=== PATIENT | male | born 1975 | race Caucasian/White ===

== ENCOUNTER 2023-12-12 10:54 | Emergency (ER) | payer SELFPAY ==
[2023-12-12 10:54] VITALS: BP 162/107; BP 190/130; PULSE 77; PULSE 91; RESP 16; RESP 20; TEMP 37.2; O2SAT 97; O2SAT 98; BMI 24.4
--- NOTE | 2023-12-12 11:10 | EX.ED.DYSGE1 ---
HPI History of Present Illness Chief Complaint: Flank Pain Informant: patient Onset/Context/Timing Onset: Hours (1) Context: Sudden Onset Timing: Continuous Quality: pain Location: R flank Current Severity: Severe Maximum Severity: Severe Worsened by: n/a Relieved by: n/a Associated Symptoms Associated Symptoms: nausea Narrative Narrative: 48-year-old male with history of kidney stones feels like he has another 1 started suddenly an hour ago. No injury. No fevers or chills. No vomiting but feels nauseated. No urinary problems or hematuria this morning. States he sees Dr. Baxter in [place] for [facility], he has had multiple stones removed surgically in the past. [facility] Medical History (Updated 12/12/23 @ 13:[address] Manav Teresa MD) Kidney stones Allergy/AdvReac Type Severity Reaction Status Date / Time sulfamethoxazole (From AdvReac Nausea Verified 12/12/23 10:54 Bactrim) trimethoprim (From Bactrim) AdvReac Nausea Verified 12/12/23 10:54 Social History Smoking Status: Never smoker ROS ROS ED Constitutional Constitutional ED: Denies chills or fever(s) Eyes Eyes: Denies change in vision or diplopia ENT ENT ED: Denies rhinorrhea or sore throat Cardiovascular Cardiovascular: Denies chest pain or palpitations Respiratory/Chest Respiratory/Chest: Denies cough or dyspnea Gastrointestinal Gastrointestinal: Reports abdominal pain and nausea; Denies diarrhea or vomiting Genitourinary Genitourinary ED: Reports as per HPI and flank pain; Denies dysuria or hematuria Musculoskeletal Musculoskeletal: Reports back pain; Denies neck pain Integumentary Denies abscess or rash Neurologic Neurologic: Denies headache(s), paresthesias or weakness Psychiatric Psychiatric: Denies anxiety or suicidal thoughts EXAM Physical Exam Const Vital Signs: 12/12/23 10:54 12/12/23 10:54 Temperature 99 F Temperature Source Temporal Pulse Rate 91 77 Respiratory Rate 20 H 16 Blood Pressure 190/130 H 162/107 H Blood Pressure Mean 150 125 Pulse Ox 97 98 Oxygen Delivery Method Room Air Room Air Positive well nourished and well developed Constitutional Narrative: Mild painful distress moaning in pain. Cooperative. General Appearance ED: well developed HEENT Reports moist mucous membranes normocephalic and atraumatic Eyes PERRL and EOMs intact bilaterally Neck full ROM and supple Resp normal respiratory effort and clear to auscultation bilaterally Cardio regular rate, regular rhythm and no murmurs GI non-tender and non-distended GI Narrative: Points to mid right lateral abdomen as point of major pain, nontender there. Auscultation: normoactive bowel sounds Palpation: soft Back/Spine General Back: CVA tenderness right and other FROM Extremity normal to inspection General Extremety ED: Negative for edema, pulses abnormal or tenderness General Extremity: Negative for edema or pulses abnormal Neuro oriented x3, CN's II-XII intact bilaterally and no sensory deficits noted Sensorium / Orientation: awake and alert Motor Exam: strength 5/5 throughout Psych mental status grossly normal Skin no rashes or lesions noted and no wounds MDM MDM MDM Narrative Medical decision making narrative: Patient treated with morphine, Toradol, Zofran and on reevaluation he is asymptomatic and doing much better. I reviewed the CT images as well as the report, it shows what appears to be a recently passed stone at the base of the bladder it is measuring about 4.3 mm on my measurement. I agree with the radiology report. There is no sign of an obstructive uropathy at this time. He does have some asymptomatic nonobstructing renal stones bilaterally that are relatively small. Patient states that when he first arrived he urinated in the trash can because he was in a lot of pain and did not know what else to do. Therefore he does not need to urinate right now, states he was not having any problems, and is asymptomatic and does not want to stay for urinalysis and wants to leave I am okay with this and given him urine strainers to go home with advised to follow-up with his urologist or return if worse. He is comfortable with that plan. Radiography Diagnostic Testing: Clinical Impression(s) from Imaging Studies Abdomen/Pelvis CT 12/12/23 11:50 IMPRESSION: Nonobstructive bilateral intrarenal calculi. Findings suggestive of a recently passed calculus in the right ureteral system. The calculus is at the base of the bladder on the right side. Electronically Signed: Leif Arshad MD at 12:05 EDT , Discharge Plan Triage Chief Complaint: Flank Pain ED Provider: Manav Teresa Dx/Rx/DC Orders Clinical Impression: Urolithiasis, Renal colic on right side Instructions: ED Kidney Stone, Passed Primary Care Provider: KOURTNEY HERNANDEZ MD Referrals: KOURTNEY HERNANDEZ MD [Other] - 3-5 Days if not improving (Or Dr. Baxter) Print Language: Turkmen Disposition Disposition: Home, Self Care
[2023-12-12] MEDS: Morphine 4 MG/ML Syringe IV (11:27)
[2023-12-12] MEDS: Ondansetron 4 MG/2 ML Vial IV (11:27)
[2023-12-12] MEDS: Ketorolac 30 MG/ML Syringe IV (11:27)
--- NOTE | 2023-12-12 11:50 | CT_ITS ---
STUDY: CT ABDOMEN AND PELVIS WITHOUT CONTRAST REASON FOR EXAM: Male, 48 years old. Kidney Stone RADIATION DOSAGE (If Supplied By Facility): CTDIvol = ( 8.11 ) mGy, DLP = ( 431.46 ) mGycm TECHNIQUE: Transaxial images were obtained from the dome of the diaphragm to the symphysis pubis without oral contrast, and without intravenous contrast. Sagittal and coronal images were reconstructed. Individualized dose optimization techniques were used for this CT. COMPARISON: None. FINDINGS: Minimal degree of blood dependent bibasilar atelectasis. The visualized portions of the heart are within normal limits. Normal liver. Normal gallbladder and extrahepatic biliary system. Normal spleen. Normal pancreas. Normal bilateral adrenal glands. Nonobstructive right intrarenal calculi. The larger measures 4 mm. Mild degree of right hydronephrosis and right hydroureter. There is a 3 mm calculus at the base of the bladder on the right side suggestive of a recently passed right ureteral calculus. There is a 3 mm nonobstructive calculus in the midpole calyx of the left kidney. Normal visualized stomach. Normal small intestine. There are multiple colonic diverticula consistent with diverticulosis. The appendix is visualized and appears normal. Normal abdominal aorta. Normal inferior vena cava. Normal retroperitoneum. 3 mm calculus seen at the base of the bladder on the right side. Normal abdominal wall. Normal osseous structures. CT/Abdomen/Pelvis without Cont IMPRESSION: Nonobstructive bilateral intrarenal calculi. Findings suggestive of a recently passed calculus in the right ureteral system. The calculus is at the base of the bladder on the right side. Electronically Signed: Leif Arshad MD at 12:05 EDT ,
[2023-12-12 13:55] VITALS: BP 122/78; PULSE 80; RESP 16; TEMP 36.7; O2SAT 100
== END 2023-12-12 13:58 | disposition home or self-care (01) ==
PROVIDERS: Emergency Provider Emergency Medicine; Visit Provider Emergency Medicine
DX: N20.9 Urinary calculus, unspecified (principal); Z87.442 Personal history of urinary calculi
CPT/HCPCS: 74176; 96374; 96375; 99283; J7030; J2405